=== PATIENT | female | born 1995 | race African-American/Black ===

== ENCOUNTER 2016-12-24 06:03 | Emergency (ER) | payer MEDICAID ==
[~2016-12-24] VITALS: Ht 185.4 cm; Wt 150.0 kg
[2016-12-24 08:50] LABS: GLUCOSE URINE NEGATIVE (NEGATIVE); KETONES URINE NEGATIVE (NEGATIVE); LEUKOCYTE ESTERASE URINE NEGATIVE (NEGATIVE); NITRITE URINE NEGATIVE (NEGATIVE); OCCULT BLOOD URINE NEGATIVE (NEGATIVE); PROTEIN URINE NEGATIVE (NEGATIVE); SPECIFIC GRAVITY URINE 1.024 (1.005-1.030)
[2016-12-24 08:51] LABS: CLARITY URINE CLEAR (CLEAR); COLOR URINE DARK YELLOW (YELLOW)
[2016-12-24] MEDS ORDERED: IBUPROFEN 600MG TABLET PO ONE (09:30)
[2016-12-24 10:06] VITALS: BP 145/89
== END 2016-12-24 10:36 | disposition home or self-care (01) ==
LOC: ER 07:56
DX: H66.91 Otitis media, unspecified, right ear (principal); F17.210 Nicotine dependence, cigarettes, uncomplicated
CPT/HCPCS: 81003; 81025; 87210; 99284

== ENCOUNTER 2021-01-02 15:11 | Emergency (ER) | payer MEDICAID ==
[~2021-01-02] VITALS: Ht 190.5 cm; Wt 151.0 kg
[2021-01-02 15:16] VITALS: BP 130/88
== END 2021-01-02 20:37 | disposition left against medical advice (07) ==
LOC: ER 15:53
DX: Z53.21 Procedure and treatment not carried out due to patient leaving prior to being seen by health care provider (principal); R07.2 Precordial pain
CPT/HCPCS: 93005

== ENCOUNTER 2021-01-13 09:49 | Emergency (ER) | payer MEDICAID ==
[~2021-01-13] VITALS: Ht 190.5 cm; Wt 156.0 kg
[2021-01-13 09:58] VITALS: BP 135/84
[2021-01-13] MEDS ORDERED: KETOROLAC 60MG/2ML VIAL IM ONE (10:15)
[2021-01-13] MEDS ORDERED: IBUP-2030 MT (10:28)
[2021-01-13] MEDS ORDERED: TRAM50TA3 MT (10:28)
[2021-01-13] MEDS ORDERED: DOXY100C2 MT (10:28)
== END 2021-01-13 11:00 | disposition home or self-care (01) ==
LOC: ER 09:49
DX: L02.412 Cutaneous abscess of left axilla (principal); Z98.890 Other specified postprocedural states; Z90.49 Acquired absence of other specified parts of digestive tract
CPT/HCPCS: 81025; 96372; 99283; J1885

== ENCOUNTER 2021-05-04 02:34 | Emergency (ER) | payer MEDICAID ==
[~2021-05-04] VITALS: Ht 190.5 cm; Wt 146.9 kg
[~2021-05-04 02:34] MED LIST: DOXY100C5 MT; IBUP-2030 MT; TRAM50TA3 MT
[2021-05-04 03:06] VITALS: BP 141/85
[2021-05-04 03:12] LABS: CLARITY URINE CLEAR (CLEAR); COLOR URINE YELLOW (YELLOW); KETONES URINE NEGATIVE (NEGATIVE); LEUKOCYTE ESTERASE URINE NEGATIVE (NEGATIVE); NITRITE URINE NEGATIVE (NEGATIVE); OCCULT BLOOD URINE NEGATIVE (NEGATIVE); PH URINE 5.5 (4.5-8.0); PROTEIN URINE NEGATIVE (NEGATIVE); SPECIFIC GRAVITY URINE 1.011 (1.005-1.030); UROBILINOGEN URINE 0.2 E.U./dL (0.2-1.0)
== END 2021-05-04 03:29 | disposition home or self-care (01) ==
LOC: ER 02:34
DX: Z20.2 Contact with and (suspected) exposure to infections with a predominantly sexual mode of transmission (principal); Z90.49 Acquired absence of other specified parts of digestive tract; Z98.890 Other specified postprocedural states
CPT/HCPCS: 81003; 86694; 86695; 99283

== ENCOUNTER 2021-07-05 02:05 | Emergency (ER) | payer MEDICAID ==
[~2021-07-05] VITALS: Ht 188 cm; Wt 143.0 kg
[2021-07-05] MEDS ORDERED: HYDROCODONE/ACETAMINOPHEN 5/325MG TABLET PO ONE (03:30)
[2021-07-05 03:54] VITALS: BP 148/92
[2021-07-05] MEDS ORDERED: HYDR-4001 MT (05:26)
[2021-07-05] MEDS ORDERED: IBUP-2030 MT (05:26)
== END 2021-07-05 05:56 | disposition home or self-care (01) ==
LOC: ER 02:05
DX: S62.356A Nondisplaced fracture of shaft of fifth metacarpal bone, right hand, initial encounter for closed fracture (principal); Z90.49 Acquired absence of other specified parts of digestive tract; W10.8XXA Fall (on) (from) other stairs and steps, initial encounter; Y93.89 Activity, other specified; Y92.018 Other place in single-family (private) house as the place of occurrence of the external cause
CPT/HCPCS: 29125; 73110; 73130; 99284

== ENCOUNTER 2024-02-10 17:15 | Emergency (ER) | payer MEDICAID, OTHER ==
[~2024-02-10] VITALS: Ht 190.5 cm; Wt 124.9 kg
[~2024-02-10 17:15] MED LIST changes: +HYDR-4001 MT
[2024-02-10 17:35] VITALS: BP 127/87; PULSE 110; RESP 16; O2SAT 100
[2024-02-10 20:17] LABS: BASOPHILS % 0.4 % (0.0-2.0); EOSINOPHILS % 1.1 % (0.0-5.0); HEMATOCRIT. 25.2 % (36.0-48.0); HEMOGLOBIN. 7.7 g/dL (12.0-16.0); LYMPHOCYTES % 20.5 % (20.0-50.0); MEAN CORPUSCULAR HEMOGLOBIN 19.5 pg (28.0-32.0); MEAN CORPUSCULAR HGB CONC 30.6 g/dL (31.0-37.0); MEAN CORPUSCULAR VOLUME 63.7 fL (81.0-99.0); MEAN PLATELET VOLUME 7.4 fl (7.4-10.4); MONOCYTES % 9.1 % (2.0-8.0); NEUTROPHILS % 68.9 % (40.0-76.0); PLATELET 440 x1000/uL (130-400); RED BLOOD CELL COUNT 3.95 mill/uL (4.2-5.4); RED CELL DISTRIBUTION WIDTH 20.8 % (11.6-14.6); WHITE BLOOD COUNT 7.4 x1000/uL (4.5-11.0)
[2024-02-10 20:21] LABS: ADD RBC MORPHOLOGY YES; DIFFERENTIAL COMMENT 1
[2024-02-10 20:22] LABS: CHLORIDE 105 mEq/L (98-107); POTASSIUM 4.4 mEq/L (3.5-5.1); SODIUM 137 mEq/L (136-145)
[2024-02-10 20:23] LABS: CARBON DIOXIDE 25 mEq/L (21-32)
[2024-02-10 20:24] LABS: CALCIUM 9.1 mg/dL (8.7-10.4)
[2024-02-10 20:28] LABS: CREATININE 0.7 mg/dL (0.6-1.0); GLUCOSE 105 mg/dL (70-105)
[2024-02-10 20:29] LABS: UREA NITROGEN BLOOD 9 mg/dL (9-23)
[2024-02-10 20:32] LABS: ANISOCYTOSIS 2+; HYPOCHROMASIA 2+; MICROCYTOSIS 3+; PLATELET ESTIMATE INCREASED
[2024-02-10 20:47] LABS: B-HCG QUANTITATIVE 22419 mIU/mL (<3)
[2024-02-10 20:51] VITALS: TEMP 98.6
[2024-02-10] MEDS: ACETAMINOPHEN 325MG TABLET PO ONE (20:51)
== END 2024-02-10 20:51 | disposition home or self-care (01) ==
LOC: ER 17:15
DX: O20.0 Threatened abortion (principal); D25.9 Leiomyoma of uterus, unspecified; Z3A.01 Less than 8 weeks gestation of pregnancy; Z90.49 Acquired absence of other specified parts of digestive tract; Z98.890 Other specified postprocedural states; Z79.899 Other long term (current) drug therapy
CPT/HCPCS: 36415; 76801; 80048; 84702; 85025; 86850; 86900; 99284